=== PATIENT | female | born 1925 | race Caucasian/White ===

== ENCOUNTER 2016-10-03 23:39 | Inpatient (IN) ==
[2016-10-04 00:25] LABS: Basophils # (Auto) 0 K/mcL (0.0-0.3); Basophils % (Auto) 0.4 % (0.0-2.0); Eosinophils # (Auto) 0 K/mcL (0.0-0.7); Eosinophils % (Auto) 0.5 % (0.0-7.0); Granulocytes % (Auto) 77.1 % (38.0-78.0); Lymphocytes # (Auto) 0.7 K/mcL (1.5-4.8); Lymphocytes % (Auto) 11.2 % (15.5-49.0); Mean Cell Volume 91.5 fL (80.0-100.0); Mean Corpuscular HGB Conc 32.5 g/dL (31.0-36.0); Mean Corpuscular Hemoglobin 29.7 pg (26.0-34.0); Monocytes # (Auto) 0.7 K/mcL (0.1-0.9); Monocytes % (Auto) 10.8 % (1.0-9.0); Platelet Count 163 K/mcL (140-440); Red Cell Distribution Width 17.9 % (11.5-14.5)
[2016-10-04 00:41] LABS: ALT/SGPT 15 U/l (0-40); Albumin 3.5 gm/dL (3.2-5.2); Albumin/Globulin Ratio 1.3 (1.0-2.3); Alkaline Phosphatase 83 U/L (39-117); Blood Urea Nitrogen 44 mg/dl (8-23)
[2016-10-04] MEDS ORDERED: ALBUTEROL SULFATE 5 MG/ML NEB SOLUTION BOTTLE NEB ONE (00:50)
[2016-10-04] MEDS ORDERED: SODIUM POLYSTYRENE SULFONATE 15 GM/60 ML SUSPENSION PO ONE (00:51)
[2016-10-04] MEDS ORDERED: FUROSEMIDE 40 MG/4 ML VIAL IV ONE (00:56)
[2016-10-04] MEDS ORDERED: INSULIN NPH, HUMAN 1 UNIT/0.01 ML UNIT SQ ONE (00:57)
[2016-10-04] MEDS ORDERED: CALCIUM GLUCONATE 4.65 MEQ/10 ML VIAL ONE (01:00)
--- NOTE | 2016-10-04 01:43 | Emergency Department Note ---
General Adult HPI - General Chief complaint: Fall Stated complaint: fall Time Seen by Provider: 10/04/16 00:43 Source: EMS Mode of arrival: EMS Limitations: other - History of Present Illness HPI Narrative: 89-year-old female who fell at the retirement in her head and complaining of some neck pain. Is alert and oriented, does not remember what happened. He doesn't know she slipped or if she became too weak. sHe hit her head on the door Was no loss of consciousness. No numbness or tingling to the extremities. This was an unwitnessed fall. However - Related Data Home Medications Medication Instructions Recorded Confirmed Ergocalciferol (Vitamin D2) 1,000 mcg PO DAILY 08/30/16 09/17/16 [Vitamin D] acetaminophen 325 mg tablet 650 mg PO .COMPLEX 09/13/16 09/17/16 nystatin-triamcinolone topical applic TOPICAL .COMPLEX 09/13/16 09/17/16 cream furosemide 20 mg tablet 20 mg PO BID tab 09/26/16 09/26/16 Previous Rx's Medication Instructions Recorded Metoprolol Tartrate [Lopressor] 37.5 mg PO BID 14 Days 12/12/15 traZODone HCL [Desyrel] 50 mg PO HSP PRN #14 tab 12/12/15 Acetaminophen [Tylenol] 650 mg PO Q4-6HP PRN #0 tab 01/15/16 Aspirin 81 mg PO QDAY tab.chew 01/15/16 Docusate Sodium [Colace] 100 mg PO BID cap 01/15/16 Ipratropium/Albuterol [Duoneb] 3 ml NEB Q4HP PRN #0 ampul.neb 01/15/16 Sennosides/Docusate Sodium [Senna 1 tab PO HS tab 01/15/16 Plus Tablet] spironolactone 25 mg tablet 25 mg PO BID #60 tab 09/13/16 Sulfamethoxazole/Trimethoprim 1 each PO BID #14 tablet 09/26/16 [Bactrim Ds Tablet] Allergies Allergy/AdvReac Type Severity Reaction Status Date / Time No Known Drug Allergies Allergy Verified 09/17/16 14:34 Review of Systems All systems ED: reviewed and negative except as stated. Constitutional: Denies: fever, chills Integumentary: Reports: other (moment to the lower extremities) Neurological: Reports: weakness Past Medical History - Past Medical History Medical history: Reports: arthritis, atrial fibrillation, CHF, coronary artery disease, dementia, hypertension, renal disease, other (Venous stasis. No lower extremity edema, anasarca, CK D) Surgical history ED: Reports: other (Bilateral mastectomy) Psychiatric history: Reports: other (Patient appears to have dementia and is extremely agitated and uncooperative at times, constantly yelling at staff) Family history: Reports: non-contributory - Social History smoking status: Former smoker Alcohol use: Reports: None Drug use: Reports: none Physical Exam - General Limitations: other - Head Head exam: normocephalic - Eye Eye exam: Present: normal appearance, PERRL - ENT ENT exam: normal exam, normal oropharynx - Neck Neck exam: Present: normal inspection, full ROM - Chest Chest inspection: Present: normal inspection - Respiratory Respiratory exam: Present: normal lung sounds bilaterally. Absent: respiratory distress, wheezes - Cardiovascular Cardiovascular exam: Present: regular rate, normal rhythm. Absent: bradycardia , tachycardia - Abdominal Exam Abdominal exam: Present: soft. Absent: distention, tenderness, guarding, rebound - Extremities Exam Extremities exam: Present: normal inspection, full ROM. Absent: tenderness - Back Exam Back exam: Present: normal inspection, full ROM. Absent: tenderness - Neurological Exam Neurological exam: Present: alert, oriented X3, CN II-XII intact - Psychiatric Psychiatric exam: Present: normal affect - Skin Skin exam: Present: warm, dry Course Vital Signs Temperature 98.2 F 10/03/16 23:40 Pulse Rate 111 H 10/03/16 23:40 Respiratory Rate 19 10/03/16 23:40 Blood Pressure 112/86 10/03/16 23:40 Pulse Oximetry (%) 98 10/03/16 23:40 Temperature 98.2 F 10/03/16 23:40 Pulse Rate 106 H 10/04/16 02:43 Respiratory Rate 19 10/03/16 23:40 Blood Pressure 108/71 10/04/16 02:43 Pulse Oximetry (%) 100 10/04/16 02:43 Medical Decision Making - MDM Narrative Medical decision making narrative: head ct and cervical ct normal. bun 44 cr 2.2 and potassium 6.4, she was referred to DR Okeefe but has not seen her yet. She has dementia and son has given a copy of advanced directive. we are giving hyperkalemia medications to lower her potassium. her potassium on 09/17 was 4.5 today 6.4 - Lab Data Result diagrams: 10/03/16 00:00 10/03/16 00:00 Lab Results 10/03/16 10/03/16 Range/Units 00:00 00:00 WBC 6.6 (4.5-11.0) K/mcL RBC 3.60 L (4.00-5.20) M/mcL Hgb 10.7 L (12.0-15.0) g/dL Hct 32.9 L (36.0-48.0) % MCV 91.5 (80.0-100.0) fL MCH 29.7 (26.0-34.0) pg MCHC 32.5 (31.0-36.0) g/dL RDW 17.9 H (11.5-14.5) % Plt Count 163 (140-440) K/mcL MPV 8.7 (7.4-10.4) fL Gran % 77.1 (38.0-78.0) % Lymph % (Auto) 11.2 L (15.5-49.0) % [place] % (Auto) 10.8 H (1.0-9.0) % Eos % (Auto) 0.5 (0.0-7.0) % Baso % (Auto) 0.4 (0.0-2.0) % Gran # 5.1 (1.8-8.0) K/mcL Lymph # 0.7 L (1.5-4.8) K/mcL [place] # 0.7 (0.1-0.9) K/mcL Eos # 0 (0.0-0.7) K/mcL Baso # 0 (0.0-0.3) K/mcL Sodium 130 L (133-145) mmol/L Potassium 6.4 H* (3.3-5.1) mmol/L Chloride 94 L (96-108) mmol/L Carbon Dioxide 22 (22-30) mmol/L Anion Gap 14.0 (8-16) BUN 44 H (8-23) mg/dl Creatinine 2.2 H (0.6-1.1) mg/dl GFR Calculation 19 Glucose 96 (70-105) mg/dL Calcium 8.8 (8.6-10.4) mg/dl Total Bilirubin 0.4 (0.0-1.0) mg/dL AST 20 (0-37) U/l ALT 15 (0-40) U/l Alkaline Phosphatase 83 (39-117) U/L Total Protein 6.3 (5.9-8.4) gm/dL Albumin 3.5 (3.2-5.2) gm/dL Globulin 2.8 (2.2-3.7) gm/dL Albumin/Globulin Ratio 1.3 (1.0-2.3) Disposition Clinical Impression: Hyperkalemia, Chronic kidney disease (CKD) Disposition: Xfer As Inpt ([facility]) Condition: Undetermined Referrals: Karla Em DO [Primary Care Provider] -
[2016-10-04] MEDS ORDERED: SODIUM POLYSTYRENE SULFONATE 15 GM/60 ML SUSPENSION PR ONE (02:43)
[2016-10-04] MEDS ORDERED: INSULIN REGULAR, HUMAN 1 UNIT/0.01 ML UNIT ONE (02:46)
[2016-10-04] MEDS ORDERED: ONDANSETRON 4 MG/2 ML VIAL IV PRN (03:01)
[2016-10-04 03:19] LABS: Appearance,Urine CLEAR; Bilirubin,Urine NEG (NEG); Color,Urine STRAW; Glucose,Urine (UA) NEGATIVE (NEG); Leukocyte Esterase,Urine NEG /uL (NEG); Nitrate,Urine NEG (NEG); Protein,Urine NEG (NEG); Specific Gravity,Urine 1.008 (1.000-1.035); Urine Blood NEG mg/dL (<0.03); Urobilinogen,Urine NEG (NEG)
[2016-10-04] MEDS ORDERED: HYDROmorphone 2 MG/ML SYRINGE IV PRN (04:49)
[2016-10-04] MEDS: 0.9 % SODIUM CHLORIDE 1,000 ML IV SCH ×3 (05:45→23:15)
[2016-10-04] MEDS ORDERED: HYDROmorphone 2 MG/ML SYRINGE ONE (05:52)
[2016-10-04 06:43] LABS: ALT/SGPT 15 U/l (0-40); Albumin 3.7 gm/dL (3.2-5.2); Albumin/Globulin Ratio 1.5 (1.0-2.3); Alkaline Phosphatase 77 U/L (39-117); Bilirubin,Direct < 0.2 mg/dL (0.0-0.3); Blood Urea Nitrogen 44 mg/dl (8-23); Gamma Glutamyl Transpeptidase 15 U/L (5-36); Magnesium 2.2 mg/dL (1.6-2.5); Phosphorous 4.3 mg/dL (2.7-4.5); Uric Acid 8.2 mg/dL (2.5-8.0)
[2016-10-04 06:45] LABS: Mean Cell Volume 89.4 fL (80.0-100.0); Mean Corpuscular HGB Conc 33.1 g/dL (31.0-36.0); Mean Corpuscular Hemoglobin 29.6 pg (26.0-34.0); Platelet Count 6 K/mcL (140-440); RBC 3.07 M/mcL (4.00-5.20); Red Cell Distribution Width 17.4 % (11.5-14.5)
[2016-10-04 06:52] LABS: Anisocytosis 2+ (NONE SEEN); Band Neutrophils % 6 % (0-10); Basophils % (Manual) 1 % (0-2); Lymphocytes % 12 % (15-49); Monocytes % (Manual) 6 % (1-9); Ovalocytes FEW (NONE SEEN); Platelet Estimate MK DECR (NORMAL); RBC Morphology ABNORM (NORMAL); Segmented Neutrophils % 73 % (38-78)
[2016-10-04 08:54] LABS: Basophils # (Auto) 0 K/mcL (0.0-0.3); Basophils % (Auto) 0.1 % (0.0-2.0); Eosinophils # (Auto) 0 K/mcL (0.0-0.7); Eosinophils % (Auto) 0 % (0.0-7.0); Granulocytes % (Auto) 79.6 % (38.0-78.0); Lymphocytes # (Auto) 0.7 K/mcL (1.5-4.8); Mean Cell Volume 91.1 fL (80.0-100.0); Mean Corpuscular HGB Conc 31.8 g/dL (31.0-36.0); Monocytes # (Auto) 0.6 K/mcL (0.1-0.9); Monocytes % (Auto) 9.3 % (1.0-9.0); Platelet Count 147 K/mcL (140-440); RBC 3.24 M/mcL (4.00-5.20); Red Cell Distribution Width 17.6 % (11.5-14.5)
--- NOTE | 2016-10-04 08:54 | Cat Scan Report ---
CLINICAL INFORMATION: Trauma on anticoagulation COMPARISON: None. TECHNIQUE: 2.5 mm helical slices were obtained in the skull base to vertex. Following reconstruction, axial reformatted images were reviewed at bone and parenchymal windows. FINDINGS: The ventricles, sulci, fissures, and cisterns are mildly enlarged compatible with mild age-related atrophy - no subdural hemorrhage or other extra-axial fluid collection appreciated. Moderate chronic ischemic changes in the cerebral white matter appreciated. There is no acute cerebral hemorrhage, mass effect or edema. Bone windows show no fracture or other osseous normality. There is a 18 mm polyp in the right maxillary sinus. IMPRESSION: Mild atrophy and chronic ischemic changes in the cerebral white matter - typical for age. No interval hemorrhage or other posttraumatic change. Interpreted and Authenticated by: Roque Boo 10/04/16
--- NOTE | 2016-10-04 08:57 | Cat Scan Report ---
CLINICAL INFORMATION: Trauma - on anticoagulation COMPARISON: None. TECHNIQUE: 2.5 mm helical slices were obtained from the skull base through the superior T2 end plate, and 1.25 mm reconstructions were obtained. 2.5 mm sagittal, coronal and axial reformations were then processed. The exam was reviewed at bone, soft tissue algorithm/window. FINDINGS: Sagittal reformatted images show 4 mm of C4 and 2 mm of C5 anterior subluxation due to degenerative facet disease. There is no fracture or other focal osseous abnormality. The cervical cord is normal in contour and caliber without hemorrhage or other abnormality. No significant soft tissue abnormalities. At C2-3, there is a small central disc protrusion. At C3-4, moderate left uncovertebral spur results in moderate left lateral recess narrowing with possible impingement of the exiting left C4 nerve root. At C4-5, mild broad disc protrusion and grade 1 anterolisthesis results in mild central canal and moderate left lateral recess last IV foraminal narrowing possible impingement exiting left C5 nerve root. C5-6, mild broad disc spur complex mildly impinges the thecal sac At C6-7 minimal broad disc spur complex and right-sided asymmetry results in mild right lateral recess narrowing At C7-T1 the disc levels normal. IMPRESSION: 1. No fracture or posttraumatic change 2. Multilevel degenerative change Interpreted and Authenticated by: Roque Boo 10/04/16
[2016-10-04] MEDS ORDERED: FUROSEMIDE 40 MG/4 ML VIAL IV SCH (09:00)
[2016-10-04 09:16] LABS: Haptoglobin 209 mg/dl (30-200)
[2016-10-04] MEDS ORDERED: IPRATROPIUM/ALBUTEROL 3 ML AMPUL.NEB NEB PRN (10:54)
[2016-10-04] MEDS ORDERED: guaiFENesin/DEXTROMETHORPHAN ORAL SOL PO PRN (10:54)
--- NOTE | 2016-10-04 11:00 | History and Physical Report ---
DATE OF ADMISSION: 10/04/2016 REASON FOR ADMISSION: Fever, weakness, mental status change. HISTORY OF CHIEF COMPLAINT: The patient is an 89-year-old who comes to [facility] ER after she fell at [place] due to significant weakness. She was evaluated in the ER with negative head and neck CT scans. However, patient remained confused and too weak to to provide a detailed history. most of the history was obtained from review of medical records. no family members are present. At the time of examination, the patient appears nondistressed and pleasant Her initial potassium was 6.4 along with acute kidney injury with creatinine of 2.2. The patient was started on hyperkalemia protocol. Hospitalist Service was consulted. The patient was subsequently transferred to ICU after initiation of hyperkalemia protocol and Kayexalate administration and continued evaluation of mental status change. REVIEW OF SYSTEMS: Ten-point review of system attempted but could not be performed due to patient's mental status. However, she would answer to leading questions. She denies chest pain, diarrhea, abdominal pain. She denies nausea, skin rash, joint pain. PAST MEDICAL HISTORY: 1. Coronary artery disease. 2. Hypertension. 3. Anxiety disorder. 4. Atrial fibrillation. 5. Pulmonary hypertension. 6. Mild chronic kidney disease, baseline creatinine around 1.3. CURRENT MEDICATIONS: 1. Metoprolol 37.5 mg b.i.d. 2. Furosemide 20 mg b.i.d. 3. Spironolactone 25 mg b.i.d. 4. Trazodone 50 mg p.r.n. 5. DuoNeb p.r.n. 6. Aspirin 81 mg daily. SOCIAL HISTORY: The patient resides at [facility]. Her son, Jack is MARKA and can be reached at [phone]. No alcoholism, remote history of smoking. FULL CODE STATUS. FAMILY HISTORY: Colon cancer in father. PHYSICAL EXAMINATION: GENERAL: The patient is fairly confused but nondistressed. BMI 39. Height 5 feet 5 inches. VITAL SIGNS: Blood pressure 109/71, respiratory rate 18, temperature 98.7, pulse 96, sats 93% on room air. HEENT: Pupils symmetric. Oral cavity is dry. No ear or nose discharge. Head is normocephalic and atraumatic. NECK: No lymphadenopathy. HEART: S1, S2, irregular rhythm. ESM grade 1. Diminished breath sounds at bases, bilateral late inspiratory crackles. ABDOMEN: Minimally distended, sluggish bowel sounds. No organomegaly. No guarding. LOWER EXTREMITIES: Significant for pitting edema bilateral lower extremity along with stasis changes but no joint swelling or erythema. SKIN: No suspicious lesions. PSYCHIATRIC: Anxious, confused but no agitation. NEURO: Nonfocal, moving all four extremities. Higher functions could not be checked due to patient's mental status, disoriented. LABS AND IMAGING: White count 6.6, hemoglobin 10.7, platelets 163, sodium 130, potassium 6.4, creatinine 2.2, BUN 44. LFTs unremarkable. Procalcitonin 0.12. INR 1.1. APTT 40, fibrinogen 481. UA unremarkable. Influenza negative. ASSESSMENT AND PLAN: An 89-year-old with weakness, fall, hyperkalemia and acute kidney injury. 1. Critical hyperkalemia, status post hyperkalemia protocol. Nephrology consulted. 2. Acute on chronic kidney injury secondary to likely over-diuresis. Continue monitoring. Nephrology on board. Gentle crystalloids. 3. Severe weakness and mental status change, rule out infectious etiology. Continue physical therapy and close monitoring. 4. Prior medical issues including history of pulmonary hypertension with recurrent anasarca, continue close IO monitoring. 5. Atrial fibrillation. Continue rate control on metoprolol, anticoagulation for CVA prophylaxis, continue aspirin. 6. History of COPD. Continue DuoNeb. PLAN FOR TODAY: 1. Admit as inpatient telemetry. 2. Hyperkalemia protocol. 3. Nephrology consultation. 4. Preexisting medical condition management as above. 5. Physical therapy. AA:erickson Job ID: [id number] Doc ID: [id number] Milan ALLEN
[2016-10-04] MEDS: METOPROLOL TARTRATE 25 MG TABLET PO SCH ×2 (11:10→22:27)
[2016-10-04] MEDS ORDERED: FUROSEMIDE 20 MG TABLET PO ONE (12:15)
[2016-10-04] MEDS: NYSTATIN CRM 1 DOSE TUBE TOPICAL SCH ×2 (12:27→22:48)
--- NOTE | 2016-10-04 14:37 | Nephrology Consult Note ---
History of Present Illness - Reason for Consult Patient information: Note initiated : 10/04/16 at 2:34 pm Service Date, if different from initiated Date: [] Patient: Makayla Zayas a 89 y/o F admitted on 10/04/16 for Fall. Chief Complaint: [] Consult date: 10/04/16 acute renal failure, hyperkalemia Requesting physician: Milan Portillo - Chief Complaint fall at assisted living - History of Present Illness Ms Zayas is a 89 y/o pleasant white female with PMH of HTN, CHF, Afib, CKD, dementia and other medical issues who is admitted s/p fall and for severe hyperkalemia Patient has dementia, she is confused and unable to provide any history She was apparently treated for UTI with bactrim ds, she finished this yesterday She had a fall at the Assisted living facility, this was not witnessed, she was c/o head and neck pain, scans are negative for hematoma, fracture She on evaluation in the ED was noted to have acute on chronic renal failure and hyperkalemia she was treated with hyperkalemia protocol for this renal is consulted for acute on chronic renal failure and persistent hyperkalemia Review of Systems ROS unobtainable: due to mental status Past History Past medical history: HTN Afib CHF dementia morbid obesity CKD Past surgical history: S/P Bilateral mastectomies h/o cholecystectomy Past family history: h/o colon cancer Past social history: lives in assisted living facility Medications and Allergies Home Medications Medication Instructions Recorded Confirmed Type Ergocalciferol (Vitamin D2) 1,000 mcg PO DAILY 08/30/16 10/04/16 History [Vitamin D] acetaminophen 325 mg tablet 650 mg PO Q4-6HP PRN 09/13/16 10/04/16 History furosemide 20 mg tablet 20 mg PO BID tab 09/26/16 10/04/16 History RX: Nystatin Crm 1 dose TOPICAL BID 10/04/16 10/04/16 History RX: Sennosides/Docusate Sodium 1 tab PO HS PRN 10/04/16 10/04/16 History [Senna Plus Tablet] guaiFENesin/DEXTROMETHORPHAN 5 ml PO Q4HP PRN 10/04/16 10/04/16 History [Robafen Dm Cgh-Chest Jean Claude Syrp] Allergies Allergy/AdvReac Type Severity Reaction Status Date / Time No Known Drug Allergies Allergy Verified 09/17/16 14:34 Exam - Vital Signs Vital signs: Temp Pulse Resp BP Pulse Ox 98.9 F 109 H 24 100/53 95 10/04/16 12:00 10/04/16 12:00 10/04/16 12:00 10/04/16 12:00 10/04/16 12:00 - General Appearance General appearance: appears started age, frail EENT: mucous membranes moist Neck: no JVD Respiratory: rales (likely conducted sounds ) Cardiology: no rub, edema, irregular rhythm Gastrointestinal: no tenderness, no guarding Integumentary: warm and dry, chronic venous stasis Neurologic: confused Musculoskeletal: no cyanosis Results - Lab Results 10/04/16 08:15 10/04/16 04:46 Most recent lab results Calcium 9.1 mg/dl (8.6-10.4) 10/04/16 04:46 Phosphorus 4.3 mg/dL (2.7-4.5) 10/04/16 04:46 Magnesium 2.2 mg/dL (1.6-2.5) 10/04/16 04:46 Assessment and Plan (1) Acute renal failure (ARF) acute on chronic renal failure baseline s.creatinine is 1.5, s.creatinine is 2.3, BUN is upto 44 low normal BP, useof multiple diuretics and bactrim likely etiology she has already finished her bactrim course I will hold off on aldactone given persistent hyperkalemia use lasix as she has 2+ edema and h/o CHF, this will also help with kaliuresis have her on low K renal diet monitor I/O, renal function and please dose meds to egfr will follow along Thank you for giving me an opportunity to participate in Ms Zayas's medical care, appreciate it Status: Acute (2) Hyperkalemia Status: Acute (3) Lower extremity edema Status: Acute
[2016-10-04] MEDS ORDERED: DEXAMETHASONE 4 MG/ML VIAL IV ONE (14:58)
[2016-10-04] MEDS ORDERED: VANCOMYCIN PER PHARMACY IV ONE (15:01)
[2016-10-04] MEDS ORDERED: AMPICILLIN SODIUM 2 GM VIAL IV SCH (15:15)
[2016-10-04] MEDS ORDERED: VANCOMYCIN 1,500 MG in 0.9 % SODIUM CHLORIDE 500 ML IV ONE (16:00)
--- NOTE | 2016-10-04 16:46 | Internal Med Progress Note ---
Medical - PN: Subj Patient information: Note initiated : 10/04/16 at 4:43 pm Service Date, if different from initiated Date: [] Patient: Makayla Zayas 89 y/o F admitted on 10/04/16 for Fall. Chief Complaint: [] Interval history: 10/04 - patient admitted with acute mental status change/hyperkalemia and renal failure. Nephrology consult. Admitted to ICU. Over thenext few hours patient has continued to deteriorate with worsening mental status. However no photophobia and neck stiffness. Rule out meningitiswith a lumbar puncture. Start acyclovir/Rocephin vancomycin and ampicillin for empiric meningitis coverage and de-escalate based on cultures. Central line placement - Constitutional Vitals: Vital Signs Temp Pulse Resp BP Pulse Ox 98.9 F 109 H 24 100/53 95 10/04/16 12:00 10/04/16 12:00 10/04/16 12:00 10/04/16 12:00 10/04/16 12:00 Period Temp Pulse Resp BP Sys/Spears Pulse Ox Last 24 Hr 98.2 F-98.9 F 87-109 18-24 98-112/53-86 92-100 Intake and Output 10/04/16 10/04/16 10/04/16 05:59 13:59 21:59 Intake Total 200 / 200 Output Total 1200 / 1200 1100 / 1100 Balance -1200 / -1200 -900 / -900 Weight 235 lb Patient Weight 10/05/16 05:59 Weight 235 lb Intake & Output: Intake & Output 10/04/16 10/04/16 10/04/16 05:59 13:59 21:59 Intake Total 200 / 200 Output Total 1200 / 1200 1100 / 1100 Balance -1200 / -1200 -900 / -900 Weight 235 lb Intake: Oral 200 / 200 Output: Urine Catheter Amount 1200 / 1200 1100 / 1100 Medical - PN: Obj Da - Labs CBC & Chem 7: 10/04/16 08:15 10/04/16 04:46 Labs: Abnormal Lab Results 10/04/16 10/04/16 10/04/16 08:15 08:15 08:15 WBC RBC Hgb Hct RDW Plt Count Gran % Lymph % (Auto) [place] % (Auto) Lymph # Lymphocytes % Platelet Estimate RBC Morphology Poikilocytosis Anisocytosis Ovalocytes Haptoglobin 209 H PT APTT 40 H Fibrinogen 481 H Potassium Carbon Dioxide Anion Gap BUN Creatinine Uric Acid Lactate Dehydrogenase 10/04/16 10/04/16 10/04/16 08:15 08:15 04:46 WBC RBC 3.24 L Hgb 9.4 L Hct 29.5 L RDW 17.6 H Plt Count Gran % 79.6 H Lymph % (Auto) 11.0 L [place] % (Auto) 9.3 H Lymph # 0.7 L Lymphocytes % Platelet Estimate RBC Morphology Poikilocytosis Anisocytosis Ovalocytes Haptoglobin PT 14.7 H APTT Fibrinogen Potassium 5.7 H Carbon Dioxide 21 L Anion Gap 17.0 H BUN 44 H Creatinine 2.3 H Uric Acid 8.2 H Lactate Dehydrogenase 295 H 10/04/16 04:46 WBC 3.5 L RBC 3.07 L Hgb 9.1 L Hct 27.4 L RDW 17.4 H Plt Count 6 L* Gran % Lymph % (Auto) [place] % (Auto) Lymph # Lymphocytes % 12 L Platelet Estimate Mk decr A RBC Morphology Abnorm A Poikilocytosis Few A Anisocytosis 2+ A Ovalocytes Few A Haptoglobin PT APTT Fibrinogen Potassium Carbon Dioxide Anion Gap BUN Creatinine Uric Acid Lactate Dehydrogenase Meds: Medications Albuterol/Ipratropium (Duoneb) 3 ml NEB Q4HP PRN PRN Reason: Shortness Of Breath Aspirin (Aspirin) 81 mg PO QDAY SHOBHA Furosemide (Lasix) 20 mg PO BID SHOBHA Guaifenesin (Robitussin Dm) 5 ml PO Q4HP PRN PRN Reason: Wheezing Hydromorphone HCl (Dilaudid) 0.5 mg IV Q4HP PRN PRN Reason: Pain Sodium Chloride (Sodium Chloride 0.9%) 1,000 mls @ 50 mls/hr IV .Q20H [facility] Last Admin: 10/04/16 05:45 Dose: 50 mls/hr Ceftriaxone Sodium 2 gm/ (Dextrose) 50 mls @ 100 mls/hr IV DAILY [facility] Vancomycin HCl 1,500 mg/ (Sodium Chloride) 500 mls @ 333.3 mls/hr IV ONCE ONE Stop: 10/04/16 17:30 Ampicillin Sodium 2 gm/ Sodium (Chloride) 100 mls @ 100 mls/hr IV Q6 [facility] Acyclovir Sodium 800 mg/ (Sodium Chloride) 150 mls @ 150 mls/hr IV DAILY [facility] Metoprolol Tartrate (Lopressor) 37.5 mg PO BID [facility] Last Admin: 10/04/16 11:10 Dose: 37.5 mg Nystatin (Nystatin Crm) 1 dose TOPICAL BID [facility] Last Admin: 10/04/16 12:27 Dose: 1 dose Ondansetron HCl (Zofran) 4 mg IV Q4HP PRN PRN Reason: Nausea And Vomiting Senna/Docusate Sodium (Senna Plus Tablet) 1 tab PO HS PRN PRN Reason: Constipation Trazodone HCl (Desyrel) 50 mg PO HSP PRN PRN Reason: Insomnia Medical - PN: A/P - Time Spent With Patient Total time spent is greater than 50% in coordination of care (as documented) at patient's floor/unit and/or counseling patient: 25 - 35 minutes (1) Change in mental status Status: Acute Assessment and plan: * acute change in mental status-. Rule out encephalitison empiric antibiotic coverage for bacterial/viralencephalitis. Lumbar puncture. CSF studies for herpes. * Hyperkalemia secondary to spironolactone/Bactrim use-Status post Kayexalate. Nephrology on board * acute renal failure-nephrology managing Current Visit: Yes Medical - PN: Qual - VTE Deep Vein Thrombosis/Pulmonary Embolism Present on Admission: No
[2016-10-04] MEDS ORDERED: LIDOCAINE 1% 20 ML VIAL SQ ONE (17:02)
[2016-10-04] MEDS ORDERED: MIDAZOLAM 5 MG/5 ML VIAL IV ONE (17:13)
[2016-10-04] MEDS ORDERED: fentaNYL 100 MCG/2 ML VIAL IV ONE (17:13)
--- NOTE | 2016-10-04 17:32 | Procedure Note ---
Procedures - Central Line Placement Right IJ Consent obtained: verbal consent, written consent Time out performed: Yes Patient placed on monitor/pulse ox: Yes MD prep: mask, sterile gown, sterile gloves, cap Central line prep: 2% Chlorhexidine scrub Local anesthesia used: lidocaine 1% Ultrasound used for placement: Yes Central line lumen inserted: quad, 16 cm Post procedure: sutured in place, good blood return, all ports aspirated, flushed, capped, sterile dressing applied Post procedure x-ray: tip of catheter in good position, no pneumothorax seen Patient tolerated procedure: well, no complications Complications: none, pneumothorax
--- NOTE | 2016-10-04 17:51 | XRay Report ---
CLINICAL INFORMATION: Central line placement COMPARISON: 08/30/2016 portable chest FINDINGS: New right IJ central line tip overlies the SVC right atrial junction. No pneumothorax or other complication from placement. The heart is mildly enlarged but unchanged. Mediastinum is unremarkable. Pulmonary vessels are slightly distended no definite edema. Lungs are clear IMPRESSION: Right IJ central line and satisfactory position Mild recurrent CHF or volume overload Interpreted and Authenticated by: Roque Boo 10/04/16
[2016-10-04] MEDS: AMPICILLIN SODIUM 2 GM in 0.9 % SODIUM CHLORIDE 100 ML IV SCH ×3 (18:01→22:33)
[2016-10-04] MEDS: cefTRIAXone 2 GM in DEXTROSE 5% IN WATER 50 ML IV SCH (18:02)
[2016-10-04] MEDS: ACYCLOVIR SODIUM 800 MG in 0.9 % SODIUM CHLORIDE 150 ML IV SCH (18:02)
[2016-10-04 18:11] LABS: Glucose,CSF 58 mg/dL (45-75)
[2016-10-04 20:25] LABS: Lymphocytes,CSF 41 % (40-80); Monocytes,CSF 41 % (15-45); Neutrophils,CSF 18 % (0-6); Total Cell Ct,CSF 17
[2016-10-04 20:26] LABS: Appearance,CSF HAZY; Nucleated Cells,CSF 21 /cumm (0-5); Red Blood Cell,CSF 1020 /cumm (0-1)
[2016-10-04] MEDS ORDERED: traZODone HCL 50 MG TABLET PO PRN (21:00)
[2016-10-04] MEDS ORDERED: SPIRONOLACTONE 25 MG TABLET PO SCH (21:00)
[2016-10-04] MEDS ORDERED: SENNOSIDES/DOCUSATE SODIUM 1 TAB TABLET PO PRN (21:00)
[2016-10-04] MEDS ORDERED: FUROSEMIDE 20 MG/2 ML VIAL IV ONE ×2 (21:56→22:29)
[2016-10-04] MEDS ORDERED: ACYCLOVIR SODIUM 500 MG VIAL IV SCH (22:00)
[2016-10-04] MEDS: FUROSEMIDE 20 MG TABLET PO SCH (22:27)
[2016-10-04] MEDS ORDERED: METOPROLOL TARTRATE 5 MG/5 ML VIAL IV ONE ×3 (22:28→22:57)
[2016-10-04] MEDS: METOPROLOL TARTRATE 5 MG/5 ML VIAL IV SCH ×3 (22:44→22:58)
[2016-10-04] MEDS: 0.9 % SODIUM CHLORIDE 10 ML SYRINGE IV SCH (22:49)
[2016-10-05] MEDS: AMPICILLIN SODIUM 2 GM in 0.9 % SODIUM CHLORIDE 100 ML IV SCH ×2 (02:15→06:30)
[2016-10-05 05:19] LABS: Mean Cell Volume 92.2 fL (80.0-100.0); Mean Corpuscular HGB Conc 31.8 g/dL (31.0-36.0); Mean Corpuscular Hemoglobin 29.3 pg (26.0-34.0); Platelet Count 133 K/mcL (140-440); RBC 3.16 M/mcL (4.00-5.20); Red Cell Distribution Width 17.6 % (11.5-14.5)
[2016-10-05 05:40] LABS: ALT/SGPT 12 U/l (0-40); Albumin 3.3 gm/dL (3.2-5.2); Albumin/Globulin Ratio 1.7 (1.0-2.3); Alkaline Phosphatase 63 U/L (39-117); Bilirubin,Direct < 0.2 mg/dL (0.0-0.3); Blood Urea Nitrogen 38 mg/dl (8-23); Gamma Glutamyl Transpeptidase 14 U/L (5-36); Magnesium 2.1 mg/dL (1.6-2.5); Phosphorous 5.1 mg/dL (2.7-4.5)
[2016-10-05 05:58] LABS: Anisocytosis 2+ (NONE SEEN); Band Neutrophils % 1 % (0-10); Lymphocytes % 11 % (15-49); Monocytes % (Manual) 5 % (1-9); Ovalocytes FEW (NONE SEEN); Platelet Estimate DECREASED (NORMAL); RBC Morphology ABNORM (NORMAL); Segmented Neutrophils % 82 % (38-78); Toxic Granulation FEW (NONE SEEN)
--- NOTE | 2016-10-05 06:04 | XRay Report ---
CLINICAL INFORMATION: Obtundation TECHNIQUE: The procedure and risks including possibility of bleeding, infection and CSF leak were explained the patient. She understood and wished to proceed. She was medicated prior to, and during, the procedure with Versed and fentanyl - please medication sheet for dosages. Blood pressure and pulse oximeter were monitored. She maintained consciousness during the procedure. Total sedation time: approximately 30 minutes. With the patient in prone position on the fluoroscopy table, the skin overlying the right L4-5 interlaminar space was fluoroscopic marked, prepped and locally anesthetized 1% lidocaine using a 25-gauge spinal needle. A 22-gauge Chiba spinal needle was advanced through the interlaminar space into the thecal sac under fluoroscopic guidance. Approximately 8 cc of clear CSF was aspirated and sent for requested studies. Because of patient agitation, CSF pressures were not obtained. No apparent complication IMPRESSION: Successful fluoroscopic guided lumbar puncture yielding 8 cc of clear CSF. Requested labs pending. CSF pressure were not obtained due to patient agitation. No apparent complication Interpreted and Authenticated by: Roque Boo 10/05/16
[2016-10-05] MEDS: 0.9 % SODIUM CHLORIDE 10 ML SYRINGE IV SCH ×2 (07:37→14:56)
--- NOTE | 2016-10-05 10:28 | Internal Med Progress Note ---
Medical - PN: Subj Patient information: Note initiated : 10/05/16 at 10:25 am Service Date, if different from initiated Date: [] Patient: Makayla Zayas 89 y/o F admitted on 10/04/16 for Fall. Chief Complaint: [] Interval history: 10/04 - patient admitted with acute mental status change/hyperkalemia and renal failure. Nephrology consult. Admitted to ICU. Over thenext few hours patient has continued to deteriorate with worsening mental status. However no photophobia and neck stiffness. Rule out meningitiswith a lumbar puncture. Start acyclovir/Rocephin vancomycin and ampicillin for empiric meningitis coverage and de-escalate based on cultures. Central line placement 10/05- patient continues to be confused however afebrile. White count unremarkable. CSF studies minimal leukocytosis(possibly secondary to bloody tap ) normal glucose and proteins. De-escalate antibiotics. continue telemetry monitoring. Patient not amenable to MRI brain. CT head neck no acute process. Nephrology on board. Potassium down to 5.1. creatinine 2.1. continue close monitoring. Transfer to telemetry - Constitutional Vitals: Vital Signs Temp Pulse Resp BP Pulse Ox 97.7 F 88 18 129/79 95 10/05/16 07:51 10/05/16 07:51 10/05/16 07:51 10/05/16 07:51 10/05/16 07:51 Period Temp Pulse Resp BP Sys/Spears Pulse Ox Last 24 Hr 97.7 F-100.3 F 79-127 18-24 97-129/44-79 95-100 Intake and Output 10/04/16 10/05/16 10/05/16 21:59 05:59 13:59 Intake Total 938 / 938 230 / 230 100 / 100 Output Total 1000 / 1000 1050 / 1050 Balance -62 / -62 -820 / -820 100 / 100 Weight 231 lb 12.8 oz Intake & Output: Intake & Output 10/04/16 10/05/16 10/05/16 21:59 05:59 13:59 Intake Total 938 / 938 230 / 230 100 / 100 Output Total 1000 / 1000 1050 / 1050 Balance -62 / -62 -820 / -820 100 / 100 Weight 231 lb 12.8 oz Intake: IV 938 / 938 200 / 200 100 / 100 Sodium Chloride 0.9% 1, 638 / 638 000 ml @ 50 mls/hr IV . Q20H SHOBHA Rx#:[id number] Sodium Chloride 0.9% 150 150 / 150 ml @ 150 mls/hr IV DAILY SHOBHA with Zovirax 800 mg Rx#:[id number] Sodium Chloride 0.9% 100 100 / 100 200 / 200 100 / 100 ml @ 100 mls/hr IV Q6 SHOBHA with Ampicillin 2 gm Rx# :[id number] Dextrose 5% in Water 50 50 / 50 ml @ 100 mls/hr IV DAILY SHOBHA with Rocephin 2 gm Rx #:[id number] Oral 30 / 30 Output: Urine Catheter Amount 1000 / 1000 1050 / 1050 Other: # Bowel Movements 0 General appearance: cooperative, no acute distress Exam: pleasantly confused Unable to respond to simple questions No anxiety or agitation No telemetry events Foleys draining clear urine Medical - PN: Obj Da - Labs CBC & Chem 7: 10/05/16 04:29 10/05/16 04:29 Labs: Abnormal Lab Results 10/05/16 10/05/16 10/04/16 04:29 04:29 16:51 WBC RBC 3.16 L Hgb 9.3 L Hct 29.1 L RDW 17.6 H Plt Count 133 L Gran % Lymph % (Auto) [place] % (Auto) Lymph # Seg Neutrophils % 82 H Lymphocytes % 11 L WBC Morphology Abnorm A Toxic Granulation Few A Platelet Estimate RBC Morphology Abnorm A Poikilocytosis Few A Anisocytosis 2+ A Ovalocytes Few A Haptoglobin PT APTT Fibrinogen Potassium Carbon Dioxide Anion Gap BUN 38 H Creatinine 2.1 H Glucose 119 H Uric Acid 9.0 H Calcium 8.4 L Phosphorus 5.1 H Lactate Dehydrogenase Total Protein 5.2 L Globulin 1.9 L CSF RBC 1020 H CSF Total Nucleated Auto 21 H CSF Neutrophils 18 H 10/04/16 10/04/16 10/04/16 08:15 08:15 08:15 WBC RBC Hgb Hct RDW Plt Count Gran % Lymph % (Auto) [place] % (Auto) Lymph # Seg Neutrophils % Lymphocytes % WBC Morphology Toxic Granulation Platelet Estimate RBC Morphology Poikilocytosis Anisocytosis Ovalocytes Haptoglobin 209 H PT APTT 40 H Fibrinogen 481 H Potassium Carbon Dioxide Anion Gap BUN Creatinine Glucose Uric Acid Calcium Phosphorus Lactate Dehydrogenase Total Protein Globulin CSF RBC CSF Total Nucleated Auto CSF Neutrophils 10/04/16 10/04/16 10/04/16 08:15 08:15 04:46 WBC RBC 3.24 L Hgb 9.4 L Hct 29.5 L RDW 17.6 H Plt Count Gran % 79.6 H Lymph % (Auto) 11.0 L [place] % (Auto) 9.3 H Lymph # 0.7 L Seg Neutrophils % Lymphocytes % WBC Morphology Toxic Granulation Platelet Estimate RBC Morphology Poikilocytosis Anisocytosis Ovalocytes Haptoglobin PT 14.7 H APTT Fibrinogen Potassium 5.7 H Carbon Dioxide 21 L Anion Gap 17.0 H BUN 44 H Creatinine 2.3 H Glucose Uric Acid 8.2 H Calcium Phosphorus Lactate Dehydrogenase 295 H Total Protein Globulin CSF RBC CSF Total Nucleated Auto CSF Neutrophils 10/04/16 04:46 WBC 3.5 L RBC 3.07 L Hgb 9.1 L Hct 27.4 L RDW 17.4 H Plt Count 6 L* Gran % Lymph % (Auto) [place] % (Auto) Lymph # Seg Neutrophils % Lymphocytes % 12 L WBC Morphology Toxic Granulation Platelet Estimate Mk decr A RBC Morphology Abnorm A Poikilocytosis Few A Anisocytosis 2+ A Ovalocytes Few A Haptoglobin PT APTT Fibrinogen Potassium Carbon Dioxide Anion Gap BUN Creatinine Glucose Uric Acid Calcium Phosphorus Lactate Dehydrogenase Total Protein Globulin CSF RBC CSF Total Nucleated Auto CSF Neutrophils Meds: Medications Albuterol/Ipratropium (Duoneb) 3 ml NEB Q4HP PRN PRN Reason: Shortness Of Breath Aspirin (Aspirin) 81 mg PO QDAY [facility] Furosemide (Lasix) 20 mg PO BID [facility] Last Admin: 10/04/16 22:27 Dose: Not Given Guaifenesin (Robitussin Dm) 5 ml PO Q4HP PRN PRN Reason: Wheezing Hydromorphone HCl (Dilaudid) 0.5 mg IV Q4HP PRN PRN Reason: Pain Sodium Chloride (Sodium Chloride 0.9%) 1,000 mls @ 50 mls/hr IV .Q20H [facility] Last Admin: 10/04/16 23:15 Dose: Not Given Ceftriaxone Sodium 2 gm/ (Dextrose) 50 mls @ 100 mls/hr IV DAILY [facility] Last Infusion: 10/04/16 18:30 Dose: Infused Acyclovir Sodium 800 mg/ (Sodium Chloride) 150 mls @ 150 mls/hr IV DAILY [facility] Last Infusion: 10/04/16 19:05 Dose: Infused Metoprolol Tartrate (Lopressor) 37.5 mg PO BID [facility] Last Admin: 10/04/16 22:27 Dose: Not Given Nystatin (Nystatin Crm) 1 dose TOPICAL BID [facility] Last Admin: 10/04/16 22:48 Dose: 1 dose Ondansetron HCl (Zofran) 4 mg IV Q4HP PRN PRN Reason: Nausea And Vomiting Senna/Docusate Sodium (Senna Plus Tablet) 1 tab PO HS PRN PRN Reason: Constipation Sodium Chloride (Saline Flush) 10 ml IV Q8 [facility] Last Admin: 10/05/16 07:37 Dose: 10 ml Trazodone HCl (Desyrel) 50 mg PO HSP PRN PRN Reason: Insomnia Medical - PN: A/P - Time Spent With Patient Total time spent is greater than 50% in coordination of care (as documented) at patient's floor/unit and/or counseling patient: 25 - 35 minutes (1) Change in mental status Status: Acute Assessment and plan: * Acute change in mental status- Negative CT head. Lumbar puncture (Possible bloody however patient exceeds normal RBC:WBC 500:1) await HSV DNA.continue acyclovir /Rocephin. DC ampicillin/vancomycin. * Hyperkalemia secondary to spironolactone/Bactrim use-potassium down to 5.1 from 6.4. Managed per nephrology * acute renal failure-nephrology on board * History of dementia with acute decompensation/mental status change continue close monitoring * Hypertension on spironolactone/metoprolol/furosemide plan * renal issues managed by nephrology * continue acyclovir/Rocephin * Delirium watch * Pre-existing medical condition management to continue as above Current Visit: Yes Medical - PN: Qual - VTE Deep Vein Thrombosis/Pulmonary Embolism Present on Admission: No
[2016-10-05] MEDS: cefTRIAXone 2 GM in DEXTROSE 5% IN WATER 50 ML IV SCH (10:51)
[2016-10-05] MEDS: METOPROLOL TARTRATE 25 MG TABLET PO SCH ×2 (10:51→19:08)
[2016-10-05] MEDS: ASPIRIN 81 MG TAB.CHEW PO SCH (10:51)
[2016-10-05] MEDS: FUROSEMIDE 20 MG TABLET PO SCH ×2 (10:51→19:08)
[2016-10-05] MEDS: NYSTATIN CRM 1 DOSE TUBE TOPICAL SCH ×2 (10:52→19:09)
[2016-10-05] MEDS: ACYCLOVIR SODIUM 800 MG in 0.9 % SODIUM CHLORIDE 150 ML IV SCH (10:52)
[2016-10-06] MEDS: 0.9 % SODIUM CHLORIDE 10 ML SYRINGE IV SCH ×2 (04:08→06:42)
[2016-10-06] MEDS: cefTRIAXone 2 GM in DEXTROSE 5% IN WATER 50 ML IV SCH (07:41)
[2016-10-06] MEDS: ACYCLOVIR SODIUM 800 MG in 0.9 % SODIUM CHLORIDE 150 ML IV SCH (07:41)
[2016-10-06 08:45] LABS: Mean Cell Volume 89.8 fL (80.0-100.0); Mean Corpuscular HGB Conc 34.1 g/dL (31.0-36.0); Mean Corpuscular Hemoglobin 30.6 pg (26.0-34.0); Platelet Count 113 K/mcL (140-440); RBC 3.03 M/mcL (4.00-5.20); Red Cell Distribution Width 16.2 % (11.5-14.5)
[2016-10-06] MEDS ORDERED: ACYCLOVIR 200 MG/5 ML PO SCH (09:00)
[2016-10-06] MEDS: FUROSEMIDE 20 MG TABLET PO SCH (09:09)
[2016-10-06] MEDS: ASPIRIN 81 MG TAB.CHEW PO SCH (09:09)
[2016-10-06] MEDS: METOPROLOL TARTRATE 25 MG TABLET PO SCH ×2 (09:09→21:43)
[2016-10-06] MEDS: NYSTATIN CRM 1 DOSE TUBE TOPICAL SCH ×2 (09:09→21:44)
[2016-10-06 09:19] LABS: Anisocytosis 1+ (NONE SEEN); Band Neutrophils % 1 % (0-10); Lymphocytes % 24 % (15-49); Monocytes % (Manual) 8 % (1-9); Platelet Estimate DECREASED (NORMAL); RBC Morphology ABNORMAL (NORMAL); Segmented Neutrophils % 66 % (38-78); Toxic Granulation OCC (NONE SEEN)
[2016-10-06 09:30] LABS: ALT/SGPT 13 U/l (0-40); Albumin 3.2 gm/dL (3.2-5.2); Albumin/Globulin Ratio 1.3 (1.0-2.3); Alkaline Phosphatase 58 U/L (39-117); Bilirubin,Direct < 0.2 mg/dL (0.0-0.3); Blood Urea Nitrogen 39 mg/dl (8-23); Gamma Glutamyl Transpeptidase 14 U/L (5-36); Phosphorous 3.3 mg/dL (2.7-4.5); Uric Acid 9.5 mg/dL (2.5-8.0)
[2016-10-06] MEDS ORDERED: ACYCLOVIR 400 MG TABLET PO SCH (09:30)
--- NOTE | 2016-10-06 10:48 | Internal Med Progress Note ---
Medical - PN: Subj Patient information: Note initiated : 10/06/16 at 10:46 am Service Date, if different from initiated Date: [] Patient: Makayla Zayas 89 y/o F admitted on 10/04/16 for Fall. Chief Complaint: [] Interval history: 10/04 - patient admitted with acute mental status change/hyperkalemia and renal failure. Nephrology consult. Admitted to ICU. Over thenext few hours patient has continued to deteriorate with worsening mental status. However no photophobia and neck stiffness. Rule out meningitiswith a lumbar puncture. Start acyclovir/Rocephin vancomycin and ampicillin for empiric meningitis coverage and de-escalate based on cultures. Central line placement 10/05- patient continues to be confused however afebrile. White count unremarkable. CSF studies minimal leukocytosis(possibly secondary to bloody tap ) normal glucose and proteins. De-escalate antibiotics. continue telemetry monitoring. Patient not amenable to MRI brain. CT head neck no acute process. Nephrology on board. Potassium down to 5.1. creatinine 2.1. continue close monitoring. Transfer to telemetry 10/06- patient extremely agitated and anxious and ripped out central line. Patient refusing telemetry monitoring/IV medications. Multiple family members were at bedside attempting to down. family did not want patient to be transferred to tertiary Center in light of viral meningitis/encephalitis. family understands the critical nature of illness. Family requests patient not to be restrained or forced IV medications. She is currently on oral acyclovir. CSF studies reveal 17 WBCs. HSV DNA CSF pending. Patient has been afebrile. Renal function improving. Potassium at 4. transfer to medical floor in light of family requests and patient's refusal for telemetry monitoring. - Constitutional Vitals: Vital Signs Temp Pulse Resp BP Pulse Ox 98.7 F 78 18 112/57 95 10/06/16 07:19 10/06/16 07:22 10/06/16 07:22 10/06/16 07:19 10/06/16 07:22 Period Temp Pulse Resp BP Sys/Spears Pulse Ox Last 24 Hr 98.7 F-99.3 F 78-100 18-19 107-119/52-67 90-95 Intake and Output 10/05/16 10/06/16 10/06/16 21:59 05:59 13:59 Intake Total 350 / 350 480 / 480 Output Total 1000 / 1000 1300 / 1300 Balance -650 / -650 -1300 / -1300 480 / 480 Weight 237 lb 12.8 oz Intake & Output: Intake & Output 10/05/16 10/06/16 10/06/16 21:59 05:59 13:59 Intake Total 350 / 350 480 / 480 Output Total 1000 / 1000 1300 / 1300 Balance -650 / -650 -1300 / -1300 480 / 480 Weight 237 lb 12.8 oz Intake: IV 150 / 150 Sodium Chloride 0.9% 150 150 / 150 ml @ 150 mls/hr IV DAILY [facility]OB[facility] with Zovirax 800 mg Rx#:[id number] Oral 200 / 200 480 / 480 Output: Urine Catheter Amount 1000 / 1000 Void Amount 1300 / 1300 Other: Meal Dinner Breakfast Percent of Meal Consumed 25% 100% Feeding Ability Total Assistance General appearance: moderate distress, no acute distress Exam: anxious and agitated intermittently Confused Nonlabored breathing Nondistended abdomen Medical - PN: Obj Da - Labs CBC & Chem 7: 10/06/16 07:00 10/06/16 07:00 Labs: Abnormal Lab Results 10/06/16 10/06/16 10/05/16 07:00 07:00 04:29 WBC RBC 3.03 L Hgb 9.3 L Hct 27.2 L RDW 16.2 H Plt Count 113 L Gran % Lymph % (Auto) [place] % (Auto) Lymph # Seg Neutrophils % Lymphocytes % WBC Morphology Abnorm A Toxic Granulation Occ A Platelet Estimate RBC Morphology Poikilocytosis Anisocytosis 1+ A Ovalocytes Haptoglobin PT APTT Fibrinogen Potassium Carbon Dioxide Anion Gap BUN 39 H 38 H Creatinine 2.0 H 2.1 H Glucose 119 H Uric Acid 9.5 H 9.0 H Calcium 8.4 L Phosphorus 5.1 H Lactate Dehydrogenase Total Protein 5.6 L 5.2 L Globulin 1.9 L CSF RBC CSF Total Nucleated Auto CSF Neutrophils 10/05/16 10/04/16 10/04/16 04:29 16:51 08:15 WBC RBC 3.16 L Hgb 9.3 L Hct 29.1 L RDW 17.6 H Plt Count 133 L Gran % Lymph % (Auto) [place] % (Auto) Lymph # Seg Neutrophils % 82 H Lymphocytes % 11 L WBC Morphology Abnorm A Toxic Granulation Few A Platelet Estimate RBC Morphology Abnorm A Poikilocytosis Few A Anisocytosis 2+ A Ovalocytes Few A Haptoglobin PT APTT Fibrinogen 481 H Potassium Carbon Dioxide Anion Gap BUN Creatinine Glucose Uric Acid Calcium Phosphorus Lactate Dehydrogenase Total Protein Globulin CSF RBC 1020 H CSF Total Nucleated Auto 21 H CSF Neutrophils 18 H 10/04/16 10/04/16 10/04/16 08:15 08:15 08:15 WBC RBC Hgb Hct RDW Plt Count Gran % Lymph % (Auto) [place] % (Auto) Lymph # Seg Neutrophils % Lymphocytes % WBC Morphology Toxic Granulation Platelet Estimate RBC Morphology Poikilocytosis Anisocytosis Ovalocytes Haptoglobin 209 H PT 14.7 H APTT 40 H Fibrinogen Potassium Carbon Dioxide Anion Gap BUN Creatinine Glucose Uric Acid Calcium Phosphorus Lactate Dehydrogenase Total Protein Globulin CSF RBC CSF Total Nucleated Auto CSF Neutrophils 10/04/16 10/04/16 10/04/16 08:15 04:46 04:46 WBC 3.5 L RBC 3.24 L 3.07 L Hgb 9.4 L 9.1 L Hct 29.5 L 27.4 L RDW 17.6 H 17.4 H Plt Count 6 L* Gran % 79.6 H Lymph % (Auto) 11.0 L [place] % (Auto) 9.3 H Lymph # 0.7 L Seg Neutrophils % Lymphocytes % 12 L WBC Morphology Toxic Granulation Platelet Estimate Mk decr A RBC Morphology Abnorm A Poikilocytosis Few A Anisocytosis 2+ A Ovalocytes Few A Haptoglobin PT APTT Fibrinogen Potassium 5.7 H Carbon Dioxide 21 L Anion Gap 17.0 H BUN 44 H Creatinine 2.3 H Glucose Uric Acid 8.2 H Calcium Phosphorus Lactate Dehydrogenase 295 H Total Protein Globulin CSF RBC CSF Total Nucleated Auto CSF Neutrophils Meds: Medications Acyclovir (Zovirax) 800 mg PO TID [facility] Last Admin: 10/06/16 10:10 Dose: 800 mg Albuterol/Ipratropium (Duoneb) 3 ml NEB Q4HP PRN PRN Reason: Shortness Of Breath Aspirin (Aspirin) 81 mg PO QDAY [facility] Last Admin: 10/06/16 09:09 Dose: 81 mg Furosemide (Lasix) 20 mg PO BID [facility] Last Admin: 10/06/16 09:09 Dose: 20 mg Guaifenesin (Robitussin Dm) 5 ml PO Q4HP PRN PRN Reason: Wheezing Metoprolol Tartrate (Lopressor) 37.5 mg PO BID [facility] Last Admin: 10/06/16 09:09 Dose: 37.5 mg Nystatin (Nystatin Crm) 1 dose TOPICAL BID [facility] Last Admin: 10/06/16 09:09 Dose: 1 dose Senna/Docusate Sodium (Senna Plus Tablet) 1 tab PO HS PRN PRN Reason: Constipation Trazodone HCl (Desyrel) 50 mg PO HSP PRN PRN Reason: Insomnia Last Admin: 10/05/16 19:09 Dose: 50 mg Medical - PN: A/P - Time Spent With Patient Total time spent is greater than 50% in coordination of care (as documented) at patient's floor/unit and/or counseling patient: 25 - 35 minutes (1) Change in mental status Status: Acute Assessment and plan: * acute viral meningitis/encephalitis- Herpes DNA pending. On acyclovir. patient refusing IV irrigations and currently on oral acyclovir. * Acute change in mental status- likely secondary to encephalitis. Lumbar puncture 17 WBCs. await HSV DNA. * Hyperkalemia secondary to spironolactone/Bactrim use-potassium down to 4 from 6.4. Managed per nephrology * acute renal failure-nephrology on board. Creatinine at 2.1 * History of dementia with acute delirium * Hypertension on spironolactone/metoprolol/furosemide plan * transfer to medical floor * continue acyclovir * Delirium/fall watch * poor prognosis Current Visit: Yes Medical - PN: Qual - VTE Deep Vein Thrombosis/Pulmonary Embolism Present on Admission: No
[2016-10-06] MEDS ORDERED: guaiFENesin/DEXTROMETHORPHAN ORAL SOL PO PRN (11:12)
[2016-10-06] MEDS ORDERED: IPRATROPIUM/ALBUTEROL 3 ML AMPUL.NEB NEB PRN (11:12)
[2016-10-06] MEDS: ACYCLOVIR 400 MG TABLET PO SCH ×2 (15:20→21:42)
[2016-10-06] MEDS ORDERED: FUROSEMIDE 20 MG TABLET PO SCH (21:00)
[2016-10-06] MEDS ORDERED: traZODone HCL 50 MG TABLET PO PRN (21:00)
[2016-10-06] MEDS ORDERED: SENNOSIDES/DOCUSATE SODIUM 1 TAB TABLET PO PRN (21:00)
[2016-10-07 07:43] LABS: ALT/SGPT 14 U/l (0-40); Albumin 3.2 gm/dL (3.2-5.2); Albumin/Globulin Ratio 1.3 (1.0-2.3); Alkaline Phosphatase 66 U/L (39-117); Bilirubin,Direct < 0.2 mg/dL (0.0-0.3); Blood Urea Nitrogen 47 mg/dl (8-23); Gamma Glutamyl Transpeptidase 15 U/L (5-36); Magnesium 1.9 mg/dL (1.6-2.5); Phosphorous 3.2 mg/dL (2.7-4.5); Uric Acid 8.8 mg/dL (2.5-8.0)
[2016-10-07 07:48] LABS: Mean Cell Volume 89.7 fL (80.0-100.0); Mean Corpuscular HGB Conc 34.1 g/dL (31.0-36.0); Mean Corpuscular Hemoglobin 30.6 pg (26.0-34.0); Platelet Count 107 K/mcL (140-440); RBC 3.36 M/mcL (4.00-5.20); Red Cell Distribution Width 16.6 % (11.5-14.5)
[2016-10-07] MEDS ORDERED: FUROSEMIDE 20 MG TABLET PO SCH (08:00)
[2016-10-07] MEDS: ACYCLOVIR 400 MG TABLET PO SCH ×2 (08:35→14:13)
[2016-10-07] MEDS: METOPROLOL TARTRATE 25 MG TABLET PO SCH (08:36)
[2016-10-07] MEDS ORDERED: ASPIRIN 81 MG TAB.CHEW PO SCH (09:00)
[2016-10-07 09:09] LABS: Anisocytosis 1+ (NONE SEEN); Lymphocytes % 24 % (15-49); Monocytes % (Manual) 2 % (1-9); Platelet Estimate DECREASED (NORMAL); RBC Morphology ABNORM (NORMAL); Segmented Neutrophils % 74 % (38-78)
--- NOTE | 2016-10-07 13:52 | Discharge Summary ---
Medical - DS: Prov Patient information: Note initiated : 10/07/16 at 1:47 pm Service Date, if different from initiated Date: [] Patient: Makayla Zayas 89 y/o F admitted on 10/04/16 for Fall, Weakness, Hyperkalemia, Acute Kidney Injury. Chief Complaint: [] Date of admission: 10/04/16 03:38 Discharge date: 10/07/16 Primary care physician: [f_Reg Prim Care Provider] Consults: 10/04/16 07:41 Consult to Physician [CONS] Routine Comment: Consulting Provider: Sangeeta Okeefe Reason For Exam: Physician to Consult Medical - DS: Meds - Discharge Medications Prescriptions: Acyclovir [Zovirax] 800 mg PO TID 10 Days Active and Home Medications: Home Medications Metoprolol Tartrate [Lopressor] 37.5 mg PO BID 14 Days 12/12/15 [Rx Confirmed Last Taken 10/03/16] traZODone HCL [Desyrel] 50 mg PO HSP PRN #14 tab 12/12/15 [Rx Confirmed Last Taken 10/03/16] Aspirin 81 mg PO QDAY tab.chew 01/15/16 [Rx Confirmed 10/04/16 Last Taken 10/03] Docusate Sodium [Colace] 100 mg PO BID cap 01/15/16 [Rx Confirmed 10/04/16 Last Taken 10/03/16] Ipratropium/Albuterol [Duoneb] 3 ml NEB Q4HP PRN #0 ampul.neb 01/15/16 [Rx Confirmed 10/04/16 Last Taken 10/03/16] Ergocalciferol (Vitamin D2) [Vitamin D] 1,000 mcg PO DAILY 08/30/16 [History Confirmed 10/04/16 Last Taken 10/03/16] acetaminophen 325 mg tablet 650 mg PO Q4-6HP PRN 09/13/16 [History Confirmed 06/10 Last Taken 10/02/16] spironolactone 25 mg tablet 25 mg PO BID #60 tab 09/13/16 [Rx Confirmed Last Taken 10/03/16] furosemide 20 mg tablet 20 mg PO BID tab 09/26/16 [History Confirmed 10/04/16 Last Taken 10/03/16] Nystatin Crm 1 dose TOPICAL BID 10/04/16 [History Confirmed 10/04/16 Last Taken 10/03/16] Sennosides/Docusate Sodium [Senna Plus Tablet] 1 tab PO HS PRN 10/04/16 [ History Confirmed 10/04/16 Last Taken 10/03/16] guaiFENesin/DEXTROMETHORPHAN [Robafen Dm Cgh-Chest Jean Claude Syrp] 5 ml PO Q4HP PRN 10/04/16 [History Confirmed 10/04/16 Last Taken 09/27/16] Acyclovir [Zovirax] 800 mg PO TID 10 Days 10/07/16 [Rx Last Taken Unknown] Medical - DS: Hosp Hospital course: DISCHARGE DIAGNOSIS * acute viral meningitis/encephalitis- WBC is on CSF with lymphocytes predominance. Herpes DNA pending. continue oral acyclovir ss patient refusing IV acyclovir. family unwilling to force IV medications using restraints. * Acute change in mental status- likely secondary to encephalitis. clinically improving her persistent confusion. * Hyperkalemia secondary to spironolactone/Bactrim use-resolved. managed by nephrology * acute renal failure-nephrology on board. Creatinine at 1.6. * History of dementia with acute delirium. clinically improving * Hypertension on continue home oral meds [facility] Mr. Zayas is a 89 year old female admitted with mental status change/ hyperkalemia/renal failure 10/04 - patient admitted with acute mental status change/hyperkalemia and renal failure. Nephrology consult. Admitted to ICU. Over thenext few hours patient has continued to deteriorate with worsening mental status. However no photophobia and neck stiffness. Rule out meningitiswith a lumbar puncture. Start acyclovir/Rocephin vancomycin and ampicillin for empiric meningitis coverage and de-escalate based on cultures. Central line placement 10/05- patient continues to be confused however afebrile. White count unremarkable. CSF studies minimal leukocytosis(possibly secondary to bloody tap ) normal glucose and proteins. De-escalate antibiotics. continue telemetry monitoring. Patient not amenable to MRI brain. CT head neck no acute process. Nephrology on board. Potassium down to 5.1. creatinine 2.1. continue close monitoring. Transfer to telemetry 10/06- patient extremely agitated and anxious and ripped out central line. Patient refusing telemetry monitoring/IV medications. Multiple family members were at bedside attempting to down. family did not want patient to be transferred to tertiary Center in light of viral meningitis/encephalitis. family understands the critical nature of illness. Family requests patient not to be restrained or forced IV medications. She is currently on oral acyclovir. CSF studies reveal 17 WBCs. HSV DNA CSF pending. Patient has been afebrile. Renal function improving. Potassium at 4. transfer to medical floor in light of family requests and patient's refusal for telemetry monitoring. 10/07- patient discharging to SNF. Continues to refuse IV medication. Family agreeable with transitioning to SNF with oral acyclovir. No overnight fever chills. Pleasantly confused. No SOB/CP Discharge diagnosis: Herpes encephalitis - Time Spent with Patient Total time spent providing and/or coordinating discharge services: Greater than 30 minutes Medical - DS: Exam - Constitutional Vitals: Vital Signs Temp Pulse Pulse Resp BP Pulse Ox 10/07/16 12:00 98.1 F 67 20 118/62 97 10/07/16 07:38 96 10/07/16 07:35 98.3 F 67 67 20 124/68 96 10/07/16 04:00 98.0 F 76 18 107/69 96 10/06/16 23:58 97.8 F 78 20 121/79 90 10/06/16 20:00 97.7 F 84 20 136/68 94 10/06/16 19:50 71 18 96 10/06/16 16:00 98.7 F 71 18 121/81 96 Intake and Output 10/06/16 10/07/16 10/07/16 21:59 05:59 13:59 Intake Total 1175 / 1175 360 / 360 Output Total 850 / 850 Balance -850 / -850 1174 / 1174 359 / 359 Intake: Oral 1175 / 1175 360 / 360 Output: Urine Catheter Amount 850 / 850 # of times incontinent of urine Other: Meal HS Snack-jello Breakfast Percent of Meal Consumed 100% 100% Feeding Ability Independent Assist with Tray Set Up # Voids 1 1 1 # Bowel Movements 1 Weight 229 lb Medical - DS: Data Labs on day of discharge: Labs from last 24 hours 10/07/16 10/07/16 06:05 06:05 WBC 6.3 RBC 3.36 L Hgb 10.3 L Hct 30.1 L MCV 89.7 MCH 30.6 MCHC 34.1 RDW 16.6 H Plt Count 107 L MPV 8.5 Total Counted 100 Seg Neutrophils % 74 Band Neutrophils % Not Reportable Lymphocytes % 24 Monocytes % (Manual) 2 Platelet Estimate Decreased RBC Morphology Abnorm A Anisocytosis 1+ A Sodium 136 Potassium 4.4 Chloride 95 L Carbon Dioxide 24 Anion Gap 17.0 H BUN 47 H Creatinine 1.6 H GFR Calculation 28 Glucose 88 Uric Acid 8.8 H Calcium 8.9 Phosphorus 3.2 Magnesium 1.9 Total Bilirubin 0.4 Direct Bilirubin < 0.2 GGT 15 AST 16 ALT 14 Alkaline Phosphatase 66 Lactate Dehydrogenase 266 H Total Protein 5.7 L Albumin 3.2 Globulin 2.5 Albumin/Globulin Ratio 1.3 Triglycerides 67 Preliminary micro results at discharge 10/04/16 15:16 Blood Culture - Preliminary Blood 10/04/16 15:30 Blood Culture - Preliminary Blood Medical - DS: A/P - Patient/Caregiver Discharge Instructions Activity: increase activity as tolerated Diet: Regular Diet Additional Instructions: Follow-up PCP in 5 days continue acyclovir for 10 days I recommend SNF physician to check CBC BMP UA as a posthospital follow-up delirium watch and fall risk Continue aggressive bowel regimen to prevent constipation Continue aggressive PT OT at SNF All meals on chair sitting upright at 90 degrees to prevent aspiration Return to ER if worsening fever chills shortness of breath, diarrhea, bleeding Continue diet and activity as advised Discussed importance of medication adherence Please review medication list with patient prior to discharge Please schedule follow-up with PCP/Providers prior to discharge and provide printouts Portions of this chart may have been created with Eved voice recognition software. Occasional wrong-word or ?sound-like? substitutions may have occurred due to the inherent limitations of voice recognition software. Please read the chart carefully and recognize, using context, where the substitutions have occurred. CC- PCP Prescriptions: Acyclovir [Zovirax] 800 mg PO TID 10 Days - Problem Maintenance (1) Change in mental status Status: Acute - Follow up Plan Follow up with: Karla Em DO [Primary Care Provider] - Disposition: [facility] Prognosis: Fair Rehab Potential: Fair I certify that the patient requires SNF services: No Overall status at discharge: patient is progressing back to baseline Medical - DS: Qual - VTE Deep Vein Thrombosis/Pulmonary Embolism Present on Admission: No
[2016-10-07] MEDS: NYSTATIN CRM 1 DOSE TUBE TOPICAL SCH (14:16)
[2016-10-10 11:56] LABS: HSV DNA NOT DETECTED
== END 2016-10-07 15:00 | DRG 75 ==
LOC: ED 23:39 → ICU 10-04 03:38 → MEDSUR 10-06 19:35
PROVIDERS: ADMIT Internal Medicine; ATTEND Internal Medicine